=== PATIENT | female | born 1950 | race Caucasian/White ===

== ENCOUNTER 2020-05-09 19:43 | Inpatient (IN) | payer OTHER ==
[~2020-05-09] VITALS: Ht 149.9 cm; Wt 119.0 kg
[2020-05-09 21:11] LABS: Partial Thromboplastin Time 22.9 sec (23.64-32.05)
[2020-05-09 21:14] LABS: Basophils # (auto) 0 10 ^3/uL (0-0.2); Basophils % (auto) 0.3 % (0.0-2.0); Eosinophils # (auto) 0.2 10 ^3/uL (0-0.8); Eosinophils % (auto) 1.1 % (0.0-7.0); Hematocrit 46.7 % (36.0-46.0); Hemoglobin 15.1 g/dL (12.2-16.2); Lymphocytes # (auto) 2.7 10 ^3/uL (0.4-5.4); Lymphocytes % (auto) 18.8 % (10.0-50.0); Mean Corpuscular Hemoglobin 28.2 pg (28.0-32.0); Mean Corpuscular Hgb Conc. 32.3 g/dL (32.0-36.0); Mean Corpuscular Volume 87.4 fL (80.0-100.0); Monocytes # (auto) 1.3 10 ^3/uL (0-1.3); Monocytes % (auto) 9.3 % (0.0-12.0); Neutrophils # (auto) 10.1 10 ^3/uL (1.6-8.6); Neutrophils % (auto) 70.5 % (37.0-80.0); Platelet Count (auto) 391 10^3/uL (140-450); Red Blood Cells 5.34 10^6/uL (4.0-5.20); Red Cell Distribution Width 15.1 % (11.8-14.3); White Blood Cell 14.4 10^3/uL (4.4-10.8)
[2020-05-09 21:16] LABS: Albumin 3.4 g/dL (3.4-5.0); Anion Gap 9 (5-15); Blood Urea Nitrogen 31 mg/dL (7-18); Calcium 9.5 mg/dL (8.5-10.1); Carbon Dioxide 23 mmol/L (21-32); Chloride 106 mmol/L (98-107); Glucose 104 mg/dL (74-106); Magnesium 1.9 mg/dL (1.6-2.6); Potassium 3.8 mmol/L (3.5-5.1); Sodium 138 mmol/L (136-145)
[2020-05-09 21:19] LABS: Lactic Acid w/Reflex 2.1 mmol/L (0.4-2.0)
[2020-05-09 21:22] LABS: Alanine Aminotransferase 31 U/L (13-56); Alkaline Phosphatase 92 U/L (45-117); Aspartate Aminotransferase 20 U/L (15-37); BUN/Creatinine Ratio 35.2; Bilirubin, Total 0.5 mg/dL (0.2-1.0); GFR African American 82 mL/min; GFR Non-African American 68 mL/min; Total Protein 8.7 g/dL (6.4-8.2)
[2020-05-09 21:29] LABS: CRP High Sensitivity 1.35 mg/dL (< 0.3)
[2020-05-09] MEDS ORDERED: IOHEXOL 350 MG/ML 100ML IJ ONE (23:05)
[2020-05-09] MEDS ORDERED: SODIUM CHLORIDE 0.9% 1,000 ML IV ONE (23:15)
[2020-05-09] MEDS ORDERED: PIPERACILLIN-TAZOB 3.375GM 100 ML IV ONE (23:15)
[2020-05-09] MEDS ORDERED: POTASSIUM EFFERVESENT TAB 25 MEQ PO ONE (23:15)
[2020-05-09] MEDS ORDERED: POTASSIUM CHL 20MEQ/100ML 100 ML IV ONE (23:15)
[2020-05-09] MEDS ORDERED: VANCOMYCIN 1GM/250ML 250 ML IV ONE (23:15)
[2020-05-10 02:04] LABS: Urine Bacteria FEW /hpf (None Seen); Urine Blood Negative /uL (Negative); Urine Mucus FEW (None Seen); Urine Specific Gravity 1.014 (1.001-1.035); Urine WBC 2 /hpf (0 - 5)
[2020-05-10] MEDS ORDERED: ACETAMINOPHEN 500 MG TAB PO PRN (04:15)
[2020-05-10] MEDS ORDERED: VANCOMYCIN PER PHARMACY 0 MG IV SCH (04:15)
[2020-05-10] MEDS ORDERED: HYDROcodone-ACET 5/325MG TAB PO PRN (04:30)
[2020-05-10] MEDS ORDERED: DOCUSATE SOD 100 MG CAP PO PRN (04:30)
[2020-05-10] MEDS ORDERED: ACETAMINOPHEN 325 MG TAB PO PRN (04:30)
[2020-05-10] MEDS ORDERED: ONDANSETRON HCL 4 MG/2 ML VIAL IV PRN (04:30)
[2020-05-10] MEDS ORDERED: MORPHINE SULF INJ 2 MG/ML SYRINGE 1ML IV PRN (04:30)
[2020-05-10] MEDS ORDERED: PIPERACILLIN-TAZOB 3.375GM 100 ML IV SCH (06:00)
[2020-05-10] MEDS ORDERED: ALBUTEROL SULF HFA 90MCG INH 200DOSE IN SCH (06:00)
[2020-05-10 06:13] LABS: Basophils # (auto) 0.1 10 ^3/uL (0-0.2); Basophils % (auto) 0.9 % (0.0-2.0); Eosinophils # (auto) 0.1 10 ^3/uL (0-0.8); Hematocrit 39.6 % (36.0-46.0); Hemoglobin 12.8 g/dL (12.2-16.2); Lymphocytes # (auto) 3.8 10 ^3/uL (0.4-5.4); Lymphocytes % (auto) 29.8 % (10.0-50.0); Mean Corpuscular Hemoglobin 28.2 pg (28.0-32.0); Mean Corpuscular Hgb Conc. 32.4 g/dL (32.0-36.0); Monocytes # (auto) 1.1 10 ^3/uL (0-1.3); Monocytes % (auto) 8.7 % (0.0-12.0); Neutrophils # (auto) 7.5 10 ^3/uL (1.6-8.6); Neutrophils % (auto) 59.6 % (37.0-80.0); Nucleated Red Blood Cells % 0.1 %; Platelet Count (auto) 305 10^3/uL (140-450); Red Blood Cells 4.55 10^6/uL (4.0-5.20); White Blood Cell 12.6 10^3/uL (4.4-10.8)
[2020-05-10 06:39] LABS: Potassium 3.5 mmol/L (3.5-5.1)
[2020-05-10 06:55] LABS: BUN/Creatinine Ratio 35.5; Calcium 9.2 mg/dL (8.5-10.1); Magnesium 1.9 mg/dL (1.6-2.6)
[2020-05-10] MEDS: ASCORBIC ACID 1,000 MG TAB PO SCH (09:29)
[2020-05-10] MEDS: ZINC SULFATE 220mg CAP or TAB PO SCH (09:29)
[2020-05-10] MEDS: methylPREDNISolone SOD SUCC 125 MG/2 ML VL IV SCH (09:29)
[2020-05-10] MEDS: CHOLECALCIFEROL (VITD3) 1,000UNIT=25mCg TAB PO SCH (09:30)
[2020-05-10] MEDS: ENOXAPARIN SOD 40 MG/0.4 ML SYRINGE SC SCH (09:30)
[2020-05-10] MEDS: AZITHROMYCIN 500MG/ 250ML 250 ML IV SCH (09:42)
[2020-05-10] MEDS ORDERED: VANCOMYCIN 1GM/250ML 250 ML IV SCH (11:00)
[2020-05-10] MEDS: PIPERACILLIN-TAZO 4.5GM 100 ML IV SCH ×3 (13:14→22:32)
[2020-05-10 13:22] VITALS: BP 138/74
[2020-05-10] MEDS ORDERED: LOSA-39 PO (14:20)
[2020-05-10] MEDS ORDERED: HYDR25TA4 PO (14:20)
[2020-05-10] MEDS ORDERED: ATEN50TA PO (14:20)
[2020-05-10] MEDS ORDERED: ASPI-543 PO (14:20)
[2020-05-10] MEDS ORDERED: LEVO25TA6 PO (14:20)
[2020-05-10] MEDS ORDERED: VERA240C2 PO (14:20)
[2020-05-10 14:22] VITALS: BP 138/74
[2020-05-10] MEDS: ALBUTEROL SULF 2.5 MG/0.5ML(0.5%) NEB SOLN NEB PRN ×2 (16:18→19:50)
[2020-05-10] MEDS: IPRATROPIUM BROM 0.5 MG/2.5ML INH SOL NEB PRN ×2 (16:19→19:50)
[2020-05-10 16:30] VITALS: BP 138/74
[2020-05-10] MEDS: VANCOMYCIN 1GM/250ML 250 ML IV SCH (17:29)
[2020-05-10 17:31] VITALS: BP 161/85
--- NOTE | 2020-05-10 19:10 | NUR ---
Opening Shift Note Received report from anum Leung RN. Assumed care of patient, awake and alert. No S/S of distress/SOB or pain. Instructed on POC and to call for assist PRN, will continue to monitor for changes Q1hr and PRN. Bed placed in lowest position, bed alarm turned on and call light within reach.
[2020-05-10 22:00] VITALS: BP 140/80
--- NOTE | 2020-05-11 01:30 | NUR ---
IV removal IV DC'd with sterile technique, catheter fully intact. Pressure dressing applied to site. Patient tolerated procedure well.
--- NOTE | 2020-05-11 01:38 | NUR ---
IV insertion IV access obtained, via clean sterile technique by inserting 22 gauge catheter at right forearm after first attempt. IV secured properly. No trauma to site. Patient tolerated procedure well.
[2020-05-11] MEDS: VANCOMYCIN 1GM/250ML 250 ML IV SCH (05:11)
[2020-05-11 05:18] VITALS: BP 138/73
[2020-05-11] MEDS: PIPERACILLIN-TAZO 4.5GM 100 ML IV SCH ×2 (05:30→14:00)
[2020-05-11 06:16] LABS: Basophils # (auto) 0.1 10 ^3/uL (0-0.2); Basophils % (auto) 0.5 % (0.0-2.0); Eosinophils # (auto) 0 10 ^3/uL (0-0.8); Hematocrit 42.8 % (36.0-46.0); Lymphocytes # (auto) 1.3 10 ^3/uL (0.4-5.4); Mean Corpuscular Hemoglobin 28.4 pg (28.0-32.0); Mean Corpuscular Hgb Conc. 32.7 g/dL (32.0-36.0); Monocytes # (auto) 0.4 10 ^3/uL (0-1.3); Monocytes % (auto) 2.4 % (0.0-12.0); Neutrophils # (auto) 14.6 10 ^3/uL (1.6-8.6); Neutrophils % (auto) 89.1 % (37.0-80.0); Platelet Count (auto) 350 10^3/uL (140-450); Red Blood Cells 4.92 10^6/uL (4.0-5.20); Red Cell Distribution Width 14.8 % (11.8-14.3); White Blood Cell 16.4 10^3/uL (4.4-10.8)
[2020-05-11 06:25] LABS: Potassium 4.4 mmol/L (3.5-5.1)
[2020-05-11 06:34] LABS: Albumin 3.1 g/dL (3.4-5.0); Bilirubin, Total 0.4 mg/dL (0.2-1.0); Calcium 9.2 mg/dL (8.5-10.1); Total Protein 8.3 g/dL (6.4-8.2)
--- NOTE | 2020-05-11 07:00 | NUR ---
Respiratory note: PT ASSESSED FOR PRN TX. HR 75, RR 20, POX 97% ON 2L NC, BS ARE CLEAR. NO SOB OR DISTRESS NOTED. PT WAS NOTIFY TO HAVE RN PAGE RT FOR NEEDED TX.
--- NOTE | 2020-05-11 07:30 | NUR ---
Opening Shift Note Assuming care of patient. Patient resting in bed. Patient shows no signs or symptoms of shortness of breath. Patient denies pain. Bed is locked and lowered with side rails up x2. Bed is locked and lowered with side rails up x2. Instructed patient on the plan of care for today and to call for assistance as needed.
[2020-05-11 08:58] VITALS: BP 147/88
[2020-05-11] MEDS: ENOXAPARIN SOD 40 MG/0.4 ML SYRINGE SC SCH (10:00)
[2020-05-11] MEDS: ASCORBIC ACID 1,000 MG TAB PO SCH (10:00)
[2020-05-11] MEDS: methylPREDNISolone SOD SUCC 125 MG/2 ML VL IV SCH (11:02)
[2020-05-11] MEDS: AZITHROMYCIN 500MG/ 250ML 250 ML IV SCH (11:02)
[2020-05-11] MEDS: CHOLECALCIFEROL (VITD3) 1,000UNIT=25mCg TAB PO SCH (11:02)
[2020-05-11] MEDS: ZINC SULFATE 220mg CAP or TAB PO SCH (11:05)
[2020-05-11 13:00] VITALS: BP 149/80
[2020-05-11 17:00] VITALS: BP 151/85
[2020-05-11 17:16] VITALS: BP 151/85
--- NOTE | 2020-05-11 18:07 | NUR ---
Call to [facility] Left a message as instructed for new prescriptions per Dr. Diaz's orders.
--- NOTE | 2020-05-11 19:03 | NUR ---
Discharge Discharge instructions given as ordered. Encourage to follow up with PMD as instructed. All questions and concerns addressed. Patient verbalized understanding. Medication reconciliation form completed and copy given to patient. IV removed with catheter intact, pressure dressing applied. Patient taken to vehicle via wheelchair with all personal belongings, accompanied by staff. Taxi in lobby to take patient home. No distress noted at time of departure.
== END 2020-05-11 19:00 | disposition home or self-care (01) | DRG 202 ==
LOC: ER 19:43 → EDBD 19:43 → OVERFLOW 19:44 → WEST WING 05-10 12:12
PROVIDERS: ADMIT Hospitalist; ATTEND Internal Medicine
DX: J45.901 Unspecified asthma with (acute) exacerbation (principal); I13.0 Hypertensive heart and chronic kidney disease with heart failure and stage 1 through stage 4 chronic kidney disease, or unspecified chronic kidney disease; J44.1 Chronic obstructive pulmonary disease with (acute) exacerbation; J44.0 Chronic obstructive pulmonary disease with (acute) lower respiratory infection; E66.2 Morbid (severe) obesity with alveolar hypoventilation; Z68.43 Body mass index [BMI] 50.0-59.9, adult; I50.32 Chronic diastolic (congestive) heart failure; J20.9 Acute bronchitis, unspecified; N18.9 Chronic kidney disease, unspecified; E11.22 Type 2 diabetes mellitus with diabetic chronic kidney disease; Z83.3 Family history of diabetes mellitus; Z87.891 Personal history of nicotine dependence; Z88.2 Allergy status to sulfonamides; Z88.8 Allergy status to other drugs, medicaments and biological substances; Z20.828 Contact with and (suspected) exposure to other viral communicable diseases
CPT/HCPCS: 36415; 71045; 71275; 80048; 80053; 80061; 81001; 82728; 82962; 83036; 83605; 83615; 83735; 83880; 84443; 84484; 85025; 85379; 85610; 85730; 86141; 87040; 87070; 87086; 87804; 87880; 93005; 94640; G0378; J2405; J2543

== ENCOUNTER 2023-10-30 11:05 | Inpatient (IN) | payer OTHER ==
[~2023-10-30] VITALS: Ht 149.9 cm; Wt 116.2 kg
[~2023-10-30 11:05] MED LIST: ASPI-543 PO; ATEN50TA PO; HYDR25TA4 PO; LEVO25TA6 PO; LOSA100T58 PO; VERA240C2 PO
[2023-10-30] MEDS ORDERED: FUROSEMIDE 40 MG/4 ML VIAL IV ONE (11:45)
[2023-10-30] MEDS ORDERED: ACETAMINOPHEN 500 MG TAB PO ONE (11:45)
[2023-10-30] MEDS ORDERED: PIPERACILLIN-TAZOB 3.375GM 100 ML IV ONE ×2 (11:45→14:30)
[2023-10-30 11:55] VITALS: PULSE 101; RESP 33; O2SAT 95
[2023-10-30 12:09] LABS: Basophils # (auto) 0.1 10 ^3/uL (0-0.2); Basophils % (auto) 0.3 % (0.0-2.0); Eosinophils # (auto) 0 10 ^3/uL (0-0.8); Hematocrit 40.9 % (36.0-46.0); Hemoglobin 13.3 g/dL (12.2-16.2); Lymphocytes # (auto) 1.4 10 ^3/uL (0.4-5.4); Lymphocytes % (auto) 8.5 % (10.0-50.0); Mean Corpuscular Hemoglobin 28.8 pg (28.0-32.0); Mean Corpuscular Hgb Conc. 32.4 g/dL (32.0-36.0); Monocytes # (auto) 1.1 10 ^3/uL (0-1.3); Monocytes % (auto) 6.9 % (0.0-12.0); Neutrophils # (auto) 13.9 10 ^3/uL (1.6-8.6); Neutrophils % (auto) 84.3 % (37.0-80.0); Nucleated Red Blood Cells % 0.1 %; Red Cell Distribution Width 15.8 % (11.8-14.3); White Blood Cell 16.5 10^3/uL (4.4-10.8)
[2023-10-30] MEDS ORDERED: SODIUM CHLORIDE 0.9% 500 ML IV ONE ×2 (12:15→13:30)
[2023-10-30 12:22] LABS: INR 1.08 (0.9-1.15); Partial Thromboplastin Time 31.1 SEC (24.5-34.5); Prothrombin Time 11.3 sec (9.3-11.8)
[2023-10-30 12:28] LABS: Alanine Aminotransferase 20 U/L (7-40); Alkaline Phosphatase 86 U/L (46-116); Anion Gap 6 (5-15); Aspartate Aminotransferase 25 U/L (13-40); BUN/Creatinine Ratio 33.3 (10.0-20.0); Bilirubin, Total 0.3 mg/dL (0.2-1.0); Blood Urea Nitrogen 24 mg/dL (9-23); Calcium 9.2 mg/dL (8.5-10.1); Carbon Dioxide 30 mmol/L (20-30); Chloride 100 mmol/L (98-107); Glucose 131 mg/dL (74-106); Potassium 4.5 mmol/L (3.5-5.1); Sodium 136 mmol/L (136-145)
[2023-10-30 12:36] LABS: CRP High Sensitivity 3.11 mg/dL (<1.0)
[2023-10-30] MEDS ORDERED: VANCOMYCIN 1GM/200ML 250 ML IV ONE (12:45)
[2023-10-30 13:10] LABS: Urine Bacteria FEW /hpf (None Seen); Urine Blood TRACE /uL (Negative); Urine Clarity Clear (Clear); Urine Color Yellow (Yellow); Urine Hyaline Cast FEW /lpf (0 - 2); Urine Protein, UAD 2+ (Negative); Urine Specific Gravity 1.015 (1.001-1.035); Urine Urobilinogen Normal (Negative); Urine WBC <1 /hpf (0 - 5)
[2023-10-30 13:20] LABS: Magnesium 1.7 mg/dL (1.6-2.6)
[2023-10-30 13:48] LABS: Erythrocyte Sedimentation Rate 78 mm/hr (0-20)
[2023-10-30] MEDS ORDERED: HYDROcodone-ACET 5/325MG TAB PO PRN (17:45)
[2023-10-30] MEDS ORDERED: HYDROcodone-ACET 5/325MG TAB PO ONE (17:45)
[2023-10-30] MEDS ORDERED: MORPHINE SULFATE INJ 2 MG/ml SYRG IV PRN ×2 (17:45)
[2023-10-30] MEDS ORDERED: NITROGLYCERIN 0.4 MG SL TAB SL PRN (17:45)
[2023-10-30] MEDS ORDERED: VANCOMYCIN PER PHARMACY 0 MG IV SCH (17:45)
[2023-10-30] MEDS ORDERED: ONDANSETRON HCL 4 MG/2 ML VIAL IV PRN (17:45)
[2023-10-30] MEDS ORDERED: ACETAMINOPHEN 325 MG TAB PO PRN (17:45)
[2023-10-30] MEDS: ENOXAPARIN SOD 40 MG/0.4 ML SYRINGE SC SCH (18:09)
[2023-10-30] MEDS: FUROSEMIDE 40 MG/4 ML VIAL IV SCH (18:09)
[2023-10-30 20:00] VITALS: PULSE 88; RESP 22; O2SAT 96
[2023-10-30] MEDS ORDERED: VANCOMYCIN 750mg/250ml 250 ML IV SCH (20:00)
[2023-10-30] MEDS: ATENOLOL 50 MG TAB PO SCH (22:14)
[2023-10-30 23:18] VITALS: BP 102/54; PULSE 78; RESP 16; TEMP 97.3; O2SAT 95
[2023-10-31] VITALS (7 sets, daily range): BP systolic 119–136; BP diastolic 60–74; PULSE 67–97; RESP 16–20; TEMP 97.7–99.4; O2SAT 92–97
[2023-10-31] MEDS: VANCOMYCIN 750mg/250ml 250 ML IV SCH ×2 (02:48→17:00)
[2023-10-31] MEDS: FUROSEMIDE 40 MG/4 ML VIAL IV SCH ×2 (05:49→19:18)
[2023-10-31 06:04] LABS: Basophils # (auto) 0.1 10 ^3/uL (0-0.2); Basophils % (auto) 0.3 % (0.0-2.0); Eosinophils # (auto) 0 10 ^3/uL (0-0.8); Eosinophils % (auto) 0.1 % (0.0-7.0); Hematocrit 37.4 % (36.0-46.0); Hemoglobin 11.9 g/dL (12.2-16.2); Lymphocytes # (auto) 2.2 10 ^3/uL (0.4-5.4); Lymphocytes % (auto) 11.2 % (10.0-50.0); Mean Corpuscular Hemoglobin 28.2 pg (28.0-32.0); Mean Corpuscular Hgb Conc. 31.9 g/dL (32.0-36.0); Mean Corpuscular Volume 88.5 fL (80.0-100.0); Monocytes # (auto) 1.4 10 ^3/uL (0-1.3); Monocytes % (auto) 7.5 % (0.0-12.0); Neutrophils # (auto) 15.6 10 ^3/uL (1.6-8.6); Neutrophils % (auto) 80.9 % (37.0-80.0); Red Blood Cells 4.22 10^6/uL (4.0-5.20); Red Cell Distribution Width 15.3 % (11.8-14.3); White Blood Cell 19.3 10^3/uL (4.4-10.8)
[2023-10-31 06:28] LABS: Alanine Aminotransferase 14 U/L (7-40); Alkaline Phosphatase 72 U/L (46-116); Calcium 8.9 mg/dL (8.5-10.1)
[2023-10-31 06:29] LABS: Albumin 3.6 g/dL (3.2-4.8); Anion Gap 4 (5-15); Aspartate Aminotransferase 16 U/L (13-40); BUN/Creatinine Ratio 19.1 (10.0-20.0); Bilirubin, Total 0.2 mg/dL (0.2-1.0); Blood Urea Nitrogen 17 mg/dL (9-23); Carbon Dioxide 34 mmol/L (20-30); Chloride 101 mmol/L (98-107); Glucose 100 mg/dL (74-106); Potassium 3.7 mmol/L (3.5-5.1); Sodium 139 mmol/L (136-145); Total Protein 7.6 g/dL (5.7-8.2)
[2023-10-31] MEDS ORDERED: hydroCHLOROthiazide 25 MG TAB PO SCH (10:00)
[2023-10-31] MEDS: ASPirin-EC 81 mg tab PO SCH (10:33)
[2023-10-31] MEDS: ENOXAPARIN SOD 40 MG/0.4 ML SYRINGE SC SCH (10:33)
[2023-10-31] MEDS: LOSARTAN POTASSIUM 50 MG TAB PO SCH (10:33)
[2023-10-31] MEDS: ATENOLOL 50 MG TAB PO SCH ×2 (10:34→22:35)
[2023-11-01] VITALS (7 sets, daily range): BP systolic 121–152; BP diastolic 71–87; PULSE 77–90; RESP 18–20; TEMP 97.6–99; O2SAT 92–97
[2023-11-01] MEDS ORDERED: PSYLLIUM PWD 5.8GM PKG PO ONE (01:00)
[2023-11-01] MEDS ORDERED: INFLUENZA QUAD 2023-2024 0.5 ML SYRG IM ONE (04:45)
[2023-11-01] MEDS ORDERED: PNEUMOCOCCAL VACC POLYS 25 MCG/0.5 ML VIAL IM ONE (04:45)
[2023-11-01] MEDS: VANCOMYCIN 750mg/250ml 250 ML IV SCH (06:00)
[2023-11-01] MEDS: FUROSEMIDE 40 MG/4 ML VIAL IV SCH (06:03)
[2023-11-01 08:23] LABS: Basophils # (auto) 0 10 ^3/uL (0-0.2); Basophils % (auto) 0.3 % (0.0-2.0); Eosinophils # (auto) 0.2 10 ^3/uL (0-0.8); Eosinophils % (auto) 1.3 % (0.0-7.0); Hematocrit 38.4 % (36.0-46.0); Hemoglobin 12.4 g/dL (12.2-16.2); Lymphocytes # (auto) 1.7 10 ^3/uL (0.4-5.4); Lymphocytes % (auto) 13.5 % (10.0-50.0); Mean Corpuscular Hemoglobin 28.5 pg (28.0-32.0); Mean Corpuscular Hgb Conc. 32.2 g/dL (32.0-36.0); Mean Corpuscular Volume 88.4 fL (80.0-100.0); Monocytes # (auto) 1.3 10 ^3/uL (0-1.3); Monocytes % (auto) 10.2 % (0.0-12.0); Neutrophils # (auto) 9.5 10 ^3/uL (1.6-8.6); Neutrophils % (auto) 74.7 % (37.0-80.0); Red Blood Cells 4.34 10^6/uL (4.0-5.20); Red Cell Distribution Width 15.3 % (11.8-14.3); White Blood Cell 12.7 10^3/uL (4.4-10.8)
[2023-11-01 08:34] LABS: Chloride 98 mmol/L (98-107); Sodium 139 mmol/L (136-145)
[2023-11-01 08:35] LABS: Anion Gap 5 (5-15); Calcium 8.9 mg/dL (8.5-10.1); Carbon Dioxide 36 mmol/L (20-30)
[2023-11-01 08:40] LABS: BUN/Creatinine Ratio 23.7 (10.0-20.0); Blood Urea Nitrogen 18 mg/dL (9-23); Glucose 148 mg/dL (74-106)
[2023-11-01] MEDS: LOSARTAN POTASSIUM 50 MG TAB PO SCH (10:00)
[2023-11-01] MEDS: ENOXAPARIN SOD 40 MG/0.4 ML SYRINGE SC SCH (10:33)
[2023-11-01] MEDS: ASPirin-EC 81 mg tab PO SCH (10:34)
[2023-11-01] MEDS: ATENOLOL 50 MG TAB PO SCH ×2 (10:34→21:53)
[2023-11-01] MEDS ORDERED: LEVO150T10 PO (17:03)
[2023-11-01] MEDS ORDERED: cefTRIAXone 1GM/50ML D5W 50 ML IV ONE ×2 (17:15→18:24)
[2023-11-01] MEDS: GABAPENTIN 100 MG CAP PO SCH (21:52)
[2023-11-01] MEDS: POTASSIUM CHLORIDE 8 MEQ TAB PO SCH (21:53)
[2023-11-02] VITALS (8 sets, daily range): BP systolic 123–154; BP diastolic 75–82; PULSE 66–85; RESP 18–20; TEMP 97.9–98.7; O2SAT 89–97
[2023-11-02] MEDS ORDERED: FUROSEMIDE 40 MG/4 ML VIAL IV SCH (06:00)
[2023-11-02] MEDS: GABAPENTIN 100 MG CAP PO SCH ×3 (06:40→21:56)
[2023-11-02] MEDS: cefTRIAXone 1GM/50ML D5W 50 ML IV SCH (08:11)
[2023-11-02 08:14] LABS: Rapid Influenza A Negative (Negative); Rapid Influenza B Negative (Negative)
[2023-11-02 08:15] LABS: COVID19 ANTIGEN SOFIA FIA NEGATIVE (NEGATIVE)
[2023-11-02] MEDS: ATENOLOL 50 MG TAB PO SCH ×2 (09:35→21:57)
[2023-11-02] MEDS: ASPirin-EC 81 mg tab PO SCH (09:35)
[2023-11-02] MEDS: POTASSIUM CHLORIDE 8 MEQ TAB PO SCH ×2 (09:36→21:57)
[2023-11-02] MEDS: LOSARTAN POTASSIUM 50 MG TAB PO SCH (09:36)
[2023-11-02] MEDS: ENOXAPARIN SOD 40 MG/0.4 ML SYRINGE SC SCH (09:37)
[2023-11-02] MEDS ORDERED: CLOPIDOGREL BISULFATE 75 MG TAB PO ONE (12:45)
[2023-11-02] MEDS: FUROSEMIDE 40 MG TAB PO SCH (18:01)
[2023-11-02] MEDS: AMOXICILLIN/CLAVUL 875 MG TAB PO SCH (21:57)
[2023-11-03] VITALS (7 sets, daily range): BP systolic 148–160; BP diastolic 81–89; PULSE 69–85; RESP 17–22; TEMP 97.7–98.7; O2SAT 90–99
[2023-11-03] MEDS: GABAPENTIN 100 MG CAP PO SCH ×3 (05:40→21:42)
[2023-11-03] MEDS: FUROSEMIDE 40 MG TAB PO SCH ×2 (05:40→19:05)
[2023-11-03] MEDS: POTASSIUM CHLORIDE 8 MEQ TAB PO SCH ×2 (10:21→21:42)
[2023-11-03] MEDS: ASPirin-EC 81 mg tab PO SCH (10:22)
[2023-11-03] MEDS: ENOXAPARIN SOD 40 MG/0.4 ML SYRINGE SC SCH (10:22)
[2023-11-03] MEDS: cefTRIAXone 1GM/50ML D5W 50 ML IV SCH (10:22)
[2023-11-03] MEDS: LOSARTAN POTASSIUM 50 MG TAB PO SCH (10:22)
[2023-11-03] MEDS: ATENOLOL 50 MG TAB PO SCH ×2 (10:22→21:53)
[2023-11-03] MEDS: CLOPIDOGREL BISULFATE 75 MG TAB PO SCH (10:23)
[2023-11-03] MEDS: AMOXICILLIN/CLAVUL 875 MG TAB PO SCH (10:23)
[2023-11-04 05:00] VITALS: BP 152/65; PULSE 94; RESP 17; TEMP 97.4; O2SAT 96
[2023-11-04] MEDS: GABAPENTIN 100 MG CAP PO SCH ×2 (05:50→13:53)
[2023-11-04] MEDS: FUROSEMIDE 40 MG TAB PO SCH (05:50)
[2023-11-04 08:00] VITALS: PULSE 67
[2023-11-04 09:00] VITALS: BP 137/73; PULSE 75; RESP 20; TEMP 98.7; O2SAT 95
[2023-11-04] MEDS: cefTRIAXone 1GM/50ML D5W 50 ML IV SCH (09:29)
[2023-11-04] MEDS: POTASSIUM CHLORIDE 8 MEQ TAB PO SCH (09:30)
[2023-11-04] MEDS: CLOPIDOGREL BISULFATE 75 MG TAB PO SCH (09:30)
[2023-11-04] MEDS: ASPirin-EC 81 mg tab PO SCH (09:30)
[2023-11-04] MEDS: ATENOLOL 50 MG TAB PO SCH (09:31)
[2023-11-04] MEDS: ENOXAPARIN SOD 40 MG/0.4 ML SYRINGE SC SCH (09:31)
[2023-11-04] MEDS: LOSARTAN POTASSIUM 50 MG TAB PO SCH (09:31)
[2023-11-04] MEDS ORDERED: AZITHROMYCIN 250 MG TAB PO SCH (10:00)
[2023-11-04] MEDS ORDERED: INFLUENZA QUAD 2023-2024 0.5 ML SYRG IM ONE (13:00)
[2023-11-04] MEDS ORDERED: PNEUMOCOCCAL VACC POLYS 25 MCG/0.5 ML VIAL IM ONE (13:00)
[2023-11-04 13:18] VITALS: BP 122/69; PULSE 62; RESP 19; TEMP 98.3; O2SAT 90
[2023-11-04] MEDS ORDERED: MELATONIN 5 MG TAB PO SCH (22:00)
== END 2023-11-04 14:55 | DRG 871 ==
LOC: EDBD 11:05 → ER 11:05 → TELE 17:34 → TELE-WESTW 22:34
PROVIDERS: ADMIT Hospitalist; ATTEND Hospitalist
DX: A41.9 Sepsis, unspecified organism (principal); J96.01 Acute respiratory failure with hypoxia; I50.30 Unspecified diastolic (congestive) heart failure; L03.115 Cellulitis of right lower limb; L03.116 Cellulitis of left lower limb; Z68.43 Body mass index [BMI] 50.0-59.9, adult; N39.0 Urinary tract infection, site not specified; E03.9 Hypothyroidism, unspecified; I11.0 Hypertensive heart disease with heart failure; J44.9 Chronic obstructive pulmonary disease, unspecified; Z20.822 Contact with and (suspected) exposure to COVID-19; E66.01 Morbid (severe) obesity due to excess calories; G62.9 Polyneuropathy, unspecified; B96.20 Unspecified Escherichia coli [E. coli] as the cause of diseases classified elsewhere; Z23 Encounter for immunization; Z83.3 Family history of diabetes mellitus; Z82.49 Family history of ischemic heart disease and other diseases of the circulatory system; Z87.891 Personal history of nicotine dependence; Z88.1 Allergy status to other antibiotic agents; Z88.2 Allergy status to sulfonamides; Z88.8 Allergy status to other drugs, medicaments and biological substances
CPT/HCPCS: 36415; 70450; 71045; 80048; 80053; 81001; 82962; 83605; 83735; 83880; 84484; 85025; 85610; 85652; 85730; 86141; 87040; 87077; 87086; 87088; 87186; 87426; 87804; 93005; 93306; 93970; 96361; 96365; 96368; 96375; 97110; 97116; 97163; 97530; G0378; J2543